=== PATIENT | male | born 1965 | race African-American/Black ===

== ENCOUNTER 2016-07-02 08:16 | Emergency (ER) | payer OTHER ==
[~2016-07-02] VITALS: Ht 177.8 cm; Wt 115.0 kg
[~2016-07-02 08:16] MED LIST: AMLO10 PO; AUGM875T PO; HYDR-3533 PO
[2016-07-02 08:17] VITALS: BP 141/105; PULSE 90; RESP 16; TEMP 98.4; O2SAT 97
--- NOTE | 2016-07-02 08:47 | PD ---
HPI Chief Complaint: Back/ Neck Pain or Injury Time Seen by Provider: 08:47 Travel History International Travel<30 days: No Contact w/Intl Traveler<30days: No Traveled to known affect area: No History of Present Illness HPI 51-year-old Afro-[place]ish male coming into the emergency Department with right ankle pain as well as low back pain for the past several days. Patient states he tripped and fell twisting his right ankle and aggravating his chronic low back pain. She is also noted to have hypertension and he states she's been out of his amlodipine for quite some time. He denies weakness in the right lower extremity, numbness, or bowel or bladder changes. He has no other medical complaints at this time. No known drug allergies PFSH Past Medical History Asthma: Yes Heart Rhythm Problems: No Cardiac Catheterization: No Cardiovascular Problems: Yes (HTN) High Cholesterol: No Chest Pain: Yes Congestive Heart Failure: No Diabetes: No Diminished Hearing: No Hypertension: Yes Musculoskeletal: Yes (CHRONIC BACK PAIN) Myocardial Infarction: No PNEUMOCCOCAL Vaccine (Year): 2 Past Surgical History Coronary Artery Bypass Graft: No Social History Alcohol Use: Yes (OCCASIONALLY ) Tobacco Use: Yes Substance Use: Yes (MARIJUANA) Allergies-Medications (Allergen,Severity, Reaction): Coded Allergies: No Known Allergies (Verified , 07/02/16) Reported Meds & Prescriptions Reported Meds & Active Scripts Active Lortab (Hydrocodone-Acetaminophen) 5-325 Mg Tab 1 Tab PO Q8HR PRN Amlodipine (Amlodipine Besylate) 10 Mg Tab 10 Mg PO DAILY Prednisone 20 Mg Tab 20 Mg PO BID Augmentin (Amoxicillin-Clavulanate) 875-125 mg Tab 875 Mg PO BID not for use in CrCl <30 ml/min. Reported Norvasc (Amlodipine Besylate) 10 Mg Tab 10 Mg PO DAILY Review of Systems ROS Limitations: Poor Historian Except as stated in HPI: all other systems reviewed are Neg General / Constitutional: No: Fever Eyes: No: Visual changes HENT: No: Headaches Cardiovascular: No: Chest Pain or Discomfort Respiratory: No: Shortness of Breath Gastrointestinal: No: Nausea, Abdominal Pain Genitourinary: No: Dysuria Musculoskeletal: Positive: Myalgias, Arthralgias, Limited ROM, Pain Skin: No Rash Neurologic: No: Weakness Psychiatric: No: Depression Endocrine: No: Polydipsia Hematologic/Lymphatic: No: Easy Bruising Physical Exam Exam Limitations: Poor Historian Narrative GENERAL: Patient appears in no acute distress. SKIN: Warm and dry. Normal color. Normal turgor. HEAD: Atraumatic. Normocephalic. EYES: Pupils equal and round. No scleral icterus. No injection or drainage. ENT: No nasal bleeding or discharge. Mucous membranes pink and moist. Pharynx is normal. Airway is patent. NECK: Trachea midline. Supple and nontender. CARDIOVASCULAR: Regular rate and rhythm. RESPIRATORY: No accessory muscle use. Clear to auscultation. Breath sounds equal bilaterally. MUSCULOSKELETAL: Extremities without clubbing, cyanosis, or edema. No obvious deformities. Right ankle appears normal without significant effusion. Patient complains of pain with palpation diffusely. There is no open wound or signs of cellulitis. Low back appears normal patient complains of diffuse tenderness in the lumbar spine without specific sciatic symptoms. NEUROLOGICAL: Awake and alert. No obvious cranial nerve deficits. Motor grossly within normal limits. Five out of 5 muscle strength in the arms and legs. Normal speech. PSYCHIATRIC: Appropriate mood and affect; insight and judgment normal. Data Data Last Documented VS Vital Signs Date Time Temp Pulse Resp B/P Pulse Ox O2 Delivery O2 Flow Rate FiO2 07/02/16 08:17 98.4 90 16 141/105 97 Orders Ankle, Complete ([id number]) (07/02/16 08:54) Ice/Cold Pack (07/02/16 08:54) Spine, Lumbar - Ltd (Ap & Lat) (07/02/16 08:54) Amlodipine (Norvasc) (07/02/16 09:00) Acetaminophen (Tylenol) (07/02/16 09:00) [facility] Medical Decision Making Medical Screen Exam Complete: Yes Emergency Medical Condition: Yes Medical Record Reviewed: Yes Differential Diagnosis Right ankle sprain. Lower lumbar sprain. Arthritic pain. Sciatic flare. Attention. Narrative Course Patient is medically stable at time of exam. Patient is offered Toradol IM but refuses. Patient is given acetaminophen thousand milligrams by mouth. X-rays of the lumbar spine and ankle are ordered. Ankle x-rays negative for acute findings per radiologist. Low back x-ray shows significant arthritis between L4 and L5. Patient was discharged home on prednisone 20 mg twice a day 7 days. Patient is given Lortab 5/325 one every 6 hours when necessary pain #20. Patient is given refill of the amlodipine 10 mg daily #30 with 1 refill. Patient is to follow with his primary care physician as discussed. Diagnosis Primary Impression: Lumbago of lumbar region with sciatica Additional Impression: HTN (hypertension) Qualified Code: I10 - Essential hypertension Referrals: Primary Care Physician Patient Instructions: General Instructions, Sciatica (ED) Additional Instructions: Ankle x-rays negative for acute findings per radiologist. Low back x-ray shows significant arthritis between L4 and L5. Patient was discharged home on prednisone 20 mg twice a day 7 days. Patient is given Lortab 5/325 one every 6 hours when necessary pain #20. Patient is given refill of the amlodipine 10 mg daily #30 with 1 refill. Patient is to follow with his primary care physician as discussed. Med/Other Pt SpecificInfo: Prescription(s) given Scripts Hydrocodone-Acetaminophen (Lortab)5-325 Mg Tab1 Tab PO Q8HR PRN (PAIN) #20 TAB Ref 0 Prov:Jonathan Funes MD 07/02/16 Amlodipine 10 Mg Tab10 Mg PO DAILY #30 TAB Ref 1 Prov:Jonathan Funes MD 07/02/16 Prednisone 20 Mg Tab20 Mg PO BID #14 TAB Prov:Jonathan Funes MD 07/02/16 Disposition: DISCHARGE HOME Condition: Stable Ed Dejesus Jul 02, 2016 08:47
[2016-07-02] MEDS ORDERED: ACETAMINOPHEN 500 MG CPLT PO ONE (09:00)
--- NOTE | 2016-07-02 09:50 | RADRPT ---
EXAM DATE/TIME: 07/02/2016 09:17 [facility] COMPARISON: No previous studies available for comparison. INDICATIONS : Right ankle pain after rolling it last night. MEDICAL HISTORY : None. SURGICAL HISTORY : None. ENCOUNTER: Initial ACUITY: 1 day PAIN SCORE: 10/10 LOCATION: Right ankle. FINDINGS: Three view exam was performed of the right ankle. The bony structures are in normal alignment. No e vidence of fracture, dislocation, or soft tissue swelling. The ankle mortise is intact. No radiopaq ue foreign bodies are seen. Bony mineralization is normal. There is a spur off the inferior calcaneu s at the site of attachment of aponuerosis. An os trigonum is noted posteriorly. CONCLUSION: Negative trauma study. Ronan Son MD on July 02, 2016 at 9:43 Board Certified Radiologist. This report was verified electronically.
--- NOTE | 2016-07-02 10:23 | RADRPT ---
EXAM DATE/TIME: 07/02/2016 09:20 [facility] COMPARISON: No previous studies available for comparison. INDICATIONS : Lower back pain for 3 years; Patient fell last night. MEDICAL HISTORY : None. SURGICAL HISTORY : None. ENCOUNTER: Initial ACUITY: >1 year PAIN SCORE: 10/10 LOCATION: Lower back. FINDINGS: AP and lateral views of the lumbar spine were obtained and demonstrate 5 nonrib-bearing lumbar type v ertebrae with cysts. Moderate degenerative disc changes are present at the L4-5 level with disc space narrowing, sclerosis and anterior spurring. There is no acute fracture or malalignment. The sacrum a ppears intact. CONCLUSION: 1. No acute fracture or malalignment. 2. Moderate degenerative disc change at the L4-5 level. Ronan Son MD on July 02, 2016 at 10:20 Board Certified Radiologist. This report was verified electronically.
[2016-07-02] MEDS ORDERED: AMLO10TA2 PO (10:42)
[2016-07-02] MEDS ORDERED: TRAM50TA PO (10:42)
[2016-07-02] MEDS ORDERED: PRED20 PO (10:42)
[2016-07-02] MEDS ORDERED: HYDR-3533 PO (10:49)
[2016-07-16] MEDS ORDERED: LISI-515 PO (09:59)
== END 2016-07-02 10:59 | disposition home or self-care (01) ==
LOC: NEPB 08:16
DX: M54.40 Lumbago with sciatica, unspecified side (principal); M25.571 Pain in right ankle and joints of right foot; I10 Essential (primary) hypertension; J45.909 Unspecified asthma, uncomplicated; Z72.0 Tobacco use; W01.0XXA Fall on same level from slipping, tripping and stumbling without subsequent striking against object, initial encounter; Y99.8 Other external cause status
CPT/HCPCS: 72100; 73610; 99283

== ENCOUNTER 2016-07-15 09:00 | Emergency (ER) | payer OTHER, MEDICARE ==
[~2016-07-15] VITALS: Ht 177.8 cm; Wt 117.0 kg
[~2016-07-15 09:00] MED LIST changes: +AMLO10TA2 PO; +PRED20 PO
[2016-07-15 09:06] VITALS: BP 140/99; PULSE 92; RESP 20; TEMP 98.2; O2SAT 96
[2016-07-15] MEDS ORDERED: LORTAB (09:32)
[2016-07-15] MEDS ORDERED: LISINOPRIL PO (09:32)
[2016-07-15] MEDS ORDERED: CYCL1TAB29 PO (10:12)
[2016-07-15] MEDS ORDERED: LISI-515 PO (10:12)
[2016-07-15] MEDS ORDERED: MELO-1 PO (10:12)
--- NOTE | 2016-07-15 10:13 | PD ---
HPI Chief Complaint: Injury Time Seen by Provider: 10:08 Travel History International Travel<30 days: No Contact w/Intl Traveler<30days: No Traveled to known affect area: No History of Present Illness HPI Patient is a 51-year-old male presenting to the emergency department for evaluation of low back pain. He also states he needs an additional blood pressure medication refilled. He denies any new injury or trauma. Patient is requesting hydrocodone her tramadol for pain. He states his pain is a 6 out of 10 at times, he has not followed up with her primary doctor. Denies any numbness or tingling in his lower extremities, no bladder or bowel incontinence , he states his back feels tight. PFSH Past Medical History Asthma: Yes Heart Rhythm Problems: No Cardiac Catheterization: No Cardiovascular Problems: Yes (HTN) High Cholesterol: No Chest Pain: Yes Congestive Heart Failure: No Diabetes: No Diminished Hearing: No Hypertension: Yes Musculoskeletal: Yes (CHRONIC BACK PAIN) Myocardial Infarction: No PNEUMOCCOCAL Vaccine (Year): 2 Past Surgical History Coronary Artery Bypass Graft: No Social History Alcohol Use: Yes (OCCASIONALLY ) Tobacco Use: Yes Substance Use: Yes (MARIJUANA) Allergies-Medications (Allergen,Severity, Reaction): Coded Allergies: No Known Allergies (Verified , 07/15/16) Reported Meds & Prescriptions Reported Meds & Active Scripts Active Reported [lisiopri] 20 Mg PO DAILY [Lortab 7.5] 7.5 Norvasc (Amlodipine Besylate) 10 Mg Tab 10 Mg PO DAILY Review of Systems Except as stated in HPI: all other systems reviewed are Neg Musculoskeletal: Positive: Myalgias, Cramping, Pain Physical Exam Narrative GENERAL: Well-nourished, well-developed patient. SKIN: Warm and dry. HEAD: Normocephalic. EYES: No scleral icterus. No injection or drainage. NECK: Supple, trachea midline. No JVD or lymphadenopathy. CARDIOVASCULAR: Regular rate and rhythm without murmurs, gallops, or rubs. RESPIRATORY: Breath sounds equal bilaterally. No accessory muscle use. GASTROINTESTINAL: Abdomen soft, non-tender, nondistended. MUSCULOSKELETAL: No cyanosis, or edema. Mild tenderness to palpation in left paraspinal musculature in the lumbar region. BACK: Nontender without obvious deformity. No CVA tenderness. Data Data Last Documented VS Vital Signs Date Time Temp Pulse Resp B/P Pulse Ox O2 Delivery O2 Flow Rate FiO2 07/15/16 09:06 98.2 92 20 140/99 96 Room Air MDM Medical Decision Making Medical Screen Exam Complete: Yes Emergency Medical Condition: Yes Medical Record Reviewed: Yes Interpretation(s) Vital Signs Date Time Temp Pulse Resp B/P Pulse Ox O2 Delivery O2 Flow Rate FiO2 07/15/16 09:06 98.2 92 20 140/99 96 Room Air Differential Diagnosis Strain versus sprain versus spasm versus discogenic pain versus other Narrative Course Patient is a 51-year-old male presenting to the emergency department for evaluation of low back pain as well as for medication refill. Patient was seen and evaluated in the emergency department 07/02/16, imaging was performed at that time. There is no acute injury noted. Patient was given pain medication as well as steroids. Discussed with patient that we will not refill pain medication for ongoing chronic pain issues. He was advised to follow-up with his primary doctor. He was advised that he would be provided with a prescription for an anti-inflammatory agent as well as a muscle relaxer. He will be given a prescription for lisinopril which he states he is out of. Patient was encouraged to return to emergency department any new or worsening symptoms however he was encouraged to follow up and establish with a primary doctor for ongoing management and evaluation of his chronic health conditions. He verbalized understanding of these instructions. Patient is stable for discharge. Diagnosis Primary Impression: HTN (hypertension) Qualified Code: I10 - Essential hypertension Additional Impression: Lumbago of lumbar region with sciatica Referrals: Primary Care Physician Patient Instructions: Back Pain (ED), Chronic Back Pain (ED), General Instructions, Hypertension (ED) Additional Instructions: Follow-up with your primary doctor Return to emergency department for any new or worsening symptoms Take medications as directed Today heat and ice to affected area, continue range of motion exercises, avoid bed rest Med/Other Pt SpecificInfo: Prescription(s) given Scripts Cyclobenzaprine (Flexeril)10 Mg Tab10 Mg PO TID PRN (MUSCLE SPASM) 10 Days Ref 0 Prov:Adele Gomez 07/15/16 Meloxicam 15 Mg Tab15 Mg PO DAILY 14 Days Ref 0 Prov:Adele Gomez 07/15/16 Lisinopril 20 Mg Tab20 Mg PO DAILY #30 TAB Ref 0 Prov:Adele Gomez 07/15/16 Disposition: 01 DISCHARGE HOME Condition: Stable Adele Gomez Jul 15, 2016 10:13
[2016-07-15 10:21] VITALS: BP 141/97
[2016-07-16] MEDS ORDERED: LISI-515 PO (09:59)
== END 2016-07-15 10:24 | disposition home or self-care (01) ==
LOC: NEPB 09:00
DX: I10 Essential (primary) hypertension (principal); M54.40 Lumbago with sciatica, unspecified side; Z72.0 Tobacco use
CPT/HCPCS: 99283

== ENCOUNTER 2016-08-11 17:15 | Emergency (ER) | payer MEDICARE, OTHER ==
[~2016-08-11] VITALS: Ht 177.8 cm; Wt 120.0 kg
[~2016-08-11 17:15] MED LIST changes: -AMLO10TA2 PO; -AUGM875T PO; +CYCL1TAB29 PO; -HYDR-3533 PO; +LISI-515 PO; +LORTAB; +MELO-1 PO; -PRED20 PO
[2016-08-11 17:16] VITALS: BP 158/102; PULSE 87; RESP 18; TEMP 98.1; O2SAT 98
[2016-08-11] MEDS ORDERED: CYCLOBENZAPRINE HCL 10 MG TAB PO ONE (17:45)
[2016-08-11] MEDS ORDERED: IBUPROFEN 800 MG TAB PO ONE (17:45)
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
--- NOTE | 2016-08-11 18:47 | RADRPT ---
EXAM DATE/TIME: 08/11/2016 18:13 [facility] COMPARISON: No previous studies available for comparison. INDICATIONS : Left side cervical spine pain after falling two days ago. MEDICAL HISTORY : Hypertension. Asthma. Smoker. SURGICAL HISTORY : None. ENCOUNTER: Initial ACUITY: 2 days PAIN SCORE: 10/10 LOCATION: Left cervical spine radiates into left shoulder. FINDINGS: No appreciable subluxation or soft tissue swelling is seen. Degenerative spondylosis is present to a significant degree at C5-6 and C6-7. CONCLUSION: Degenerative spondylosis. Tyler Leblanc MD on August 11, 2016 at 18:44 Board Certified Radiologist. This report was verified electronically.
--- NOTE | 2016-08-11 18:48 | RADRPT ---
EXAM DATE/TIME: 08/11/2016 18:24 [facility] COMPARISON: No previous studies available for comparison. INDICATIONS : Left shoulder pain after falling two days ago. MEDICAL HISTORY : Hypertension. Asthma. Smoker. SURGICAL HISTORY : None. ENCOUNTER: Initial ACUITY: 2 days PAIN SCORE: 10/10 LOCATION: Left shoulder radiating down the arm. FINDINGS: No definite fractures, or dislocations are identified. No definite lytic or sclerotic lesion is seen . The joint space is well maintained. CONCLUSION: Unremarkable study. Tyler Leblanc MD on August 11, 2016 at 18:46 Board Certified Radiologist. This report was verified electronically.
[2016-08-11] MEDS ORDERED: MELO-1 PO (18:59)
[2016-08-11] MEDS ORDERED: CYCL1TAB29 PO (18:59)
== END 2016-08-11 19:40 | disposition home or self-care (01) ==
LOC: NEPB 17:15
DX: S16.1XXA Strain of muscle, fascia and tendon at neck level, initial encounter (principal); M25.512 Pain in left shoulder; I10 Essential (primary) hypertension; V29.9XXA Motorcycle rider (driver) (passenger) injured in unspecified traffic accident, initial encounter; Y93.9 Activity, unspecified; Y92.9 Unspecified place or not applicable; Y99.9 Unspecified external cause status
CPT/HCPCS: 72040; 73030; 99283

== ENCOUNTER 2017-04-28 07:25 | Emergency (ER) | payer OTHER ==
[~2017-04-28] VITALS: Ht 177.8 cm; Wt 115.0 kg
[~2017-04-28 07:25] MED LIST changes: +CYCL10TA PO; -CYCL1TAB29 PO; -MELO-1 PO; +MELO15TA20 PO
[2017-04-28 07:27] VITALS: BP 120/99; PULSE 92; RESP 14; TEMP 98.4; O2SAT 99
--- NOTE | 2017-04-28 07:41 | PD ---
HPI Chief Complaint: Fall Time Seen by Provider: 07:36 Travel History International Travel<30 days: No Contact w/Intl Traveler<30days: No Traveled to known affect area: No History of Present Illness HPI 51-year-old Afro-[place]ian male presents emergency department status post slip and fall 3 days ago. Patient states he slipped and fell in his kitchen. He now complaining of left knee pain, as well as low back pain. Patient states has a history of utilizing pain management in the past with taking hydrocodone for chronic back pain. Patient states he has been out of his pain management for 2 weeks as he was away. Patient's current pain is 6 out of 10, and worse with certain movements. Patient is able to ambulate with a limp. He denies numbness or tingling or weakness. He has no known drug allergies. PFSH Past Medical History Asthma: Yes Heart Rhythm Problems: No Cardiac Catheterization: No Cardiovascular Problems: Yes (HTN) High Cholesterol: No Chest Pain: Yes Congestive Heart Failure: No Diabetes: No Diminished Hearing: No Hypertension: Yes Musculoskeletal: Yes (CHRONIC BACK PAIN) Myocardial Infarction: No PNEUMOCCOCAL Vaccine (Year): 2 Past Surgical History Coronary Artery Bypass Graft: No Social History Alcohol Use: Yes (OCCASIONALLY ) Tobacco Use: Yes Substance Use: Yes (MARIJUANA) Allergies-Medications (Allergen,Severity, Reaction): Coded Allergies: No Known Allergies (Verified Adverse Reaction, Unknown, 04/28/17) Reported Meds & Prescriptions Reported Meds & Active Scripts Active Reported Norvasc (Amlodipine Besylate) 10 Mg Tab 10 Mg PO DAILY Review of Systems Except as stated in HPI: all other systems reviewed are Neg General / Constitutional: No: Fever Eyes: No: Visual changes HENT: No: Headaches Cardiovascular: No: Chest Pain or Discomfort Respiratory: No: Shortness of Breath Gastrointestinal: No: Abdominal Pain Genitourinary: No: Dysuria Musculoskeletal: Positive: Arthralgias, Limited ROM, Pain Skin: No Rash Neurologic: No: Weakness Psychiatric: No: Depression Endocrine: No: Polydipsia Hematologic/Lymphatic: No: Easy Bruising Physical Exam Narrative GENERAL: Patient appears in mild to moderate distress. SKIN: Warm and dry. Normal color. Normal turgor. No signs of trauma HEAD: Atraumatic. Normocephalic. EYES: Pupils equal and round. No scleral icterus. No injection or drainage. ENT: No nasal bleeding or discharge. Mucous membranes pink and moist. Pharynx is clear. Airway is patent. NECK: Trachea midline. Supple and nontender. CARDIOVASCULAR: Regular rate and rhythm. RESPIRATORY: No accessory muscle use. Clear to auscultation. Breath sounds equal bilaterally. GASTROINTESTINAL: Abdomen soft, non-tender, nondistended. Hepatic and splenic margins not palpable. MUSCULOSKELETAL: Extremities without clubbing, cyanosis, or edema. No obvious deformities. Patient has soft tissue tenderness along the lower lumbar spine bilaterally. Complains of straight leg raise pain bilaterally. Left knee has mild effusion without obvious deformity. No laxity is appreciated. Exam is limited secondary to pain. NEUROLOGICAL: Awake and alert. No obvious cranial nerve deficits. Motor grossly within normal limits. Five out of 5 muscle strength in the arms and legs. Normal speech. PSYCHIATRIC: Appropriate mood and affect; insight and judgment normal. Data Data Last Documented VS Vital Signs Date Time Temp Pulse Resp B/P (MAP) Pulse Ox O2 Delivery O2 Flow Rate FiO2 04/28/17 07:27 98.4 92 14 120/99 (106) 99 Orders Orders Knee, Complete (4vws) (04/28/17 07:45) Ketorolac Inj (Toradol Inj) (04/28/17 07:45) Acetamin-Hydrocod 325-5 Mg ([facility] 5-325 (04/28/17 09:15) MDM Medical Decision Making Medical Screen Exam Complete: Yes Emergency Medical Condition: Yes Medical Record Reviewed: Yes Differential Diagnosis Slip and fall. Lumbar strain. Left knee sprain. Possible fracture. Narrative Course X-ray of the left knee is ordered. Patient is given Toradol 60 mg IM. Patient is given Lortab 5/325 by mouth now. X-ray of the left knee shows no acute process per radiology. Patient will be continued on meloxicam 15 mg daily as well for 10 days as Flexeril 10 mg up to 3 times a day when necessary #30. Patient is to follow with his chronic pain clinic for any narcotic medications. Patient follow-up here as needed. Diagnosis Primary Impression: Lumbago of lumbar region with sciatica Additional Impression: Strain of left knee Qualified Codes: S86.912A - Strain of unspecified muscle(s) and tendon(s) at lower leg level, left leg, initial encounter Referrals: Pain Management Primary Care Physician Patient Instructions: Back Pain (ED), General Instructions, Knee Pain (ED) Additional Instructions: Patient is given Toradol 60 mg IM. Patient is given Lortab 5/325 by mouth now. X-ray of the left knee shows no acute process per radiology. Patient will be continued on meloxicam 15 mg daily as well for 10 days as Flexeril 10 mg up to 3 times a day when necessary #30. Patient is to follow with his chronic pain clinic for any narcotic medications. Patient follow-up here as needed. Med/Other Pt SpecificInfo: Prescription(s) given Scripts Meloxicam (Meloxicam) 15 Mg Tab 15 MG PO DAILY for Arthritis Pain for 10 Days, TAB 0 Refills Prov: Kenyon Tavares MD 04/28/17 Cyclobenzaprine (Flexeril) 10 Mg Tab 10 MG PO TID Y for MUSCLE SPASM for 10 Days, TAB 0 Refills Prov: Kenyon Tavares MD 04/28/17 Disposition: 01 DISCHARGE HOME Condition: Stable Ed Dejesus Apr 28, 2017 07:41
[2017-04-28] MEDS ORDERED: KETOROLAC TROMETHAMINE 60 MG/2 ML (IM) VIAL IM ONE (07:45)
[2017-04-28] MEDS ORDERED: ACETAMINOPHEN/HYDROcodone 325 MG/5 MG TAB PO ONE (09:15)
[2017-04-28] MEDS ORDERED: MELO15TA20 PO (09:19)
[2017-04-28] MEDS ORDERED: CYCL10TA PO (09:19)
--- NOTE | 2017-04-28 09:40 | RADRPT ---
EXAM DATE/TIME: 04/28/2017 08:53 [facility] COMPARISON: No previous studies available for comparison. INDICATIONS : Left knee pain due to fall all pain at patella. MEDICAL HISTORY : Hypertension. SURGICAL HISTORY : None. ENCOUNTER: Initial ACUITY: 1 day PAIN SCORE: 10/10 LOCATION: Left knee FINDINGS: Four view examination of the left knee demonstrates no evidence of fracture or dislocation. Bony min eralization is normal. The articular surfaces are intact. The suprapatellar soft tissues have a nor mal configuration. CONCLUSION: 1. No acute fracture or dislocation. Bk Vizcarra MD on April 28, 2017 at 9:38 Board Certified Radiologist. This report was verified electronically.
== END 2017-04-28 10:15 | disposition home or self-care (01) ==
LOC: NEPD 07:25
DX: M54.40 Lumbago with sciatica, unspecified side (principal); S86.912A Strain of unspecified muscle(s) and tendon(s) at lower leg level, left leg, initial encounter; W01.0XXA Fall on same level from slipping, tripping and stumbling without subsequent striking against object, initial encounter; Y92.000 Kitchen of unspecified non-institutional (private) residence as the place of occurrence of the external cause
CPT/HCPCS: 73564; 96372; 99284; J1885

== ENCOUNTER 2017-05-06 06:49 | Emergency (ER) | payer OTHER ==
[~2017-05-06 06:49] MED LIST changes: -LISI-515 PO; -LORTAB
[2017-05-06 06:51] VITALS: BP 177/110; PULSE 101; TEMP 96.7; O2SAT 99
[2017-05-06] MEDS ORDERED: LISI-515 PO (07:08)
--- NOTE | 2017-05-06 07:18 | PD ---
HPI Chief Complaint: Skin Problem Time Seen by Provider: 07:24 Travel History International Travel<30 days: No Contact w/Intl Traveler<30days: No Traveled to known affect area: No History of Present Illness HPI 51y male presents to the ED with a rash that has been persistent for 2 weeks. Pt states he was doing yard work and the rash developed the next day. He believes this may be poison giuseppe or poison oak. States the rash is only located on the upper extremities, is mildly pruritic, and has not improved. Pt denies recent travel, new foods, soaps, lotions. Patient states that he has been cleaning his linen and towels after use since the exposure. Patient has a history of high blood pressure and admits to having dry skin. Patient denies fever or chills. PFSH Past Medical History Asthma: Yes Heart Rhythm Problems: No Cardiac Catheterization: No Cardiovascular Problems: Yes (HTN) High Cholesterol: No Chest Pain: Yes Congestive Heart Failure: No Diabetes: No Diminished Hearing: No Hypertension: Yes Musculoskeletal: Yes (CHRONIC BACK PAIN) Myocardial Infarction: No PNEUMOCCOCAL Vaccine (Year): 2 Past Surgical History Coronary Artery Bypass Graft: No Social History Alcohol Use: Yes (OCCASIONALLY ) Tobacco Use: Yes Substance Use: Yes (MARIJUANA) Allergies-Medications (Allergen,Severity, Reaction): Coded Allergies: No Known Allergies (Verified Adverse Reaction, Unknown, 04/28/17) Reported Meds & Prescriptions Reported Meds & Active Scripts Active Medrol Dosepak (Methylprednisolone) 4 Mg Dspk 4 Mg PO DIRECTED Per Pharmacist direction Bactroban Topical (Mupirocin) 22 Gm Cream 1 Applic TOPICAL BID 5 Days Apply to open, weeping lesions to reduce infection. Meloxicam 15 Mg Tab 15 Mg PO DAILY 10 Days Reported Lisinopril 20 Mg Tab 20 Mg PO BID Norvasc (Amlodipine Besylate) 10 Mg Tab 10 Mg PO DAILY Review of Systems Except as stated in HPI: all other systems reviewed are Neg Physical Exam Narrative GENERAL: Well-developed well-nourished in no apparent distress SKIN: Focused skin assessment warm/dry. Bilateral upper extremities- numerous papules, 3 areas of round scaling lesions. Nikolsky's sign negative. No evidence of axillary involvement. No erythema, exudate, edema or lymphangitic Spread. Obvious excoriations over left elbow. HEAD: Atraumatic. Normocephalic. EYES: Pupils equal and round. No scleral icterus. No injection or drainage. ENT: No nasal bleeding or discharge. Mucous membranes pink and moist. NECK: Trachea midline. No JVD. incidental finding of a large 7cm soft, round lipoma on upper shoulder/neck region. no complaints. CARDIOVASCULAR: Regular rate and rhythm. No murmur appreciated. MUSCULOSKELETAL: No obvious deformities. No clubbing. No cyanosis. No edema. NEUROLOGICAL: Awake and alert. No obvious cranial nerve deficits. Motor grossly within normal limits. Normal speech. PSYCHIATRIC: Appropriate mood and affect; insight and judgment normal. Data Data Last Documented VS Vital Signs Date Time Temp Pulse Resp B/P (MAP) Pulse Ox O2 Delivery O2 Flow Rate FiO2 05/06/17 08:08 05/06/17 06:51 96.7 101 99 Room Air Orders Orders Methylprednisolone So Succ Inj (Solumedr (05/06/17 07:30) Ed Discharge Order (05/06/17 08:01) MDM Medical Decision Making Medical Screen Exam Complete: Yes Emergency Medical Condition: Yes Differential Diagnosis Contact dermatitis, eczema, atopic dermatitis, allergic dermatitis Narrative Course 51y male presents to the ED with a rash that has been persistent for 2 weeks. Pt states he was doing yard work and the rash developed the next day. He believes this may be poison giuseppe or poison oak. States the rash is only located on the upper extremities, is mildly pruritic, and has not improved. Pt denies recent travel, new foods, soaps, lotions. Patient states that he has been cleaning his linen and towels after use since the exposure. Patient has a history of high blood pressure and admits to having dry skin. Patient denies fever or chills. Physical exam consistent with contact dermatitis with an eczematous component. Vital signs stable Solumedrol administered and observed for 30 minutes. Based off of history and physical, patient likely has contact dermatitis with exacerbation of eczema. There is no evidence of cellulitis but there is concern for impetigo secondary to excoriations and scratching. Patient will go home with Bactroban and medrol dose pack. Diagnosis Primary Impression: Contact dermatitis Qualified Codes: L24.89 - Irritant contact dermatitis due to other agents Referrals: Primary Care Physician Additional Instructions: Follow-up with the primary care physician within 2-3 days. You may use Benadryl or Zyrtec (generic) by mouth to reduce your symptoms. Use [id number] hydrocortisone cream per package instructions to reduce itching and swelling. Continue to wash your linen and towels to reduce recontamination with the offending agent. If your symptoms persist or worsen, return to the emergency department. Scripts Methylprednisolone Dosepak (Medrol Dosepak) 4 Mg Dspk 4 MG PO DIRECTED, #1 DSPK 0 Refills Per Pharmacist direction Prov: Kenneth Lopez MD 05/06/17 Mupirocin Topical (Bactroban Topical) 22 Gm Cream 1 APPLIC TOPICAL BID for Mgmt Bacterial Infection for 5 Days, #1 TUBE 0 Refills Apply to open, weeping lesions to reduce infection. Prov: Kenneth Lopez MD 05/06/17 Disposition: 01 DISCHARGE HOME Condition: Stable Vianey Broussard May 06, 2017 07:18
[2017-05-06] MEDS ORDERED: MUPI2%T TOPICAL (07:26)
[2017-05-06] MEDS ORDERED: methylPREDNISolone SOD SUCC 125 MG/2 ML VIAL IM ONE (07:30)
[2017-05-06] MEDS ORDERED: MEDR4PAK PO (08:00)
== END 2017-05-06 08:08 | disposition home or self-care (01) ==
LOC: NEPD 06:49
DX: L24.89 Irritant contact dermatitis due to other agents (principal); I10 Essential (primary) hypertension; Z72.0 Tobacco use
CPT/HCPCS: 96372; 99284; J2930

== ENCOUNTER 2017-07-13 11:00 | Emergency (ER) | payer OTHER ==
[~2017-07-13] VITALS: Ht 304.8 cm; Wt 5.0 kg
[~2017-07-13 11:00] MED LIST changes: -CYCL10TA PO; +LISI-515 PO; +MEDR4PAK PO; +MUPI2%T TOPICAL
[2017-07-13 11:01] VITALS: BP 148/96; PULSE 109; RESP 20; TEMP 98.6; O2SAT 99
[2017-07-13 11:45] VITALS: PULSE 88
[2017-07-13] MEDS ORDERED: MUPI2%T TOPICAL (12:17)
[2017-07-13] MEDS ORDERED: PRED20 PO (12:17)
[2017-07-13] MEDS ORDERED: DOXY100C PO (12:17)
--- NOTE | 2017-07-13 12:19 | PD ---
HPI Chief Complaint: Skin Problem Time Seen by Provider: 12:13 Travel History International Travel<30 days: No Contact w/Intl Traveler<30days: No Traveled to known affect area: No History of Present Illness HPI 52-year-old male presents for evaluation of a rash. Symptoms started 2 months ago. The rash is pruritic, found on the arms and upper back. 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 He was seen here in April and prescribed Medrol Dosepak as well as Bactroban. The rash persists which prompted evaluation. Denies any fevers, chills. No sick contacts with rash. No other complaints. PFSH Past Medical History Asthma: Yes Heart Rhythm Problems: No Cardiac Catheterization: No Cardiovascular Problems: Yes (HTN) High Cholesterol: No Chest Pain: Yes Congestive Heart Failure: No Diabetes: No Diminished Hearing: No Hypertension: Yes Musculoskeletal: Yes (CHRONIC BACK PAIN) Myocardial Infarction: No PNEUMOCCOCAL Vaccine (Year): 2 Past Surgical History Coronary Artery Bypass Graft: No Social History Alcohol Use: Yes (OCCASIONALLY ) Tobacco Use: Yes Substance Use: Yes (MARIJUANA) Allergies-Medications (Allergen,Severity, Reaction): Coded Allergies: No Known Allergies (Verified Adverse Reaction, Unknown, 04/28/17) Reported Meds & Prescriptions Reported Meds & Active Scripts Active Meloxicam 15 Mg Tab 15 Mg PO DAILY 10 Days Bactroban Topical (Mupirocin) 22 Gm Cream 1 Applic TOPICAL BID Doxycycline Hyclate 100 Mg Cap 100 Mg PO BID Prednisone 20 Mg Tab 20 Mg PO BID 5 Days Medrol Dosepak (Methylprednisolone) 4 Mg Dspk 4 Mg PO DIRECTED Per Pharmacist direction Bactroban Topical (Mupirocin) 22 Gm Cream 1 Applic TOPICAL BID 5 Days Apply to open, weeping lesions to reduce infection. Reported Lisinopril 20 Mg Tab 20 Mg PO BID Norvasc (Amlodipine Besylate) 10 Mg Tab 10 Mg PO DAILY Review of Systems Except as stated in HPI: all other systems reviewed are Neg Physical Exam Narrative GENERAL: Well-nourished male in no acute distress SKIN: Warm and dry. Excoriated papular vesicular rash noted to the arms and upper back. There are some cellulitic changes. HEAD: Atraumatic. Normocephalic. EYES: Pupils equal and round. No scleral icterus. No injection or drainage. ENT: No nasal bleeding or discharge. Mucous membranes pink and moist. NECK: Trachea midline. No JVD. CARDIOVASCULAR: Regular rate and rhythm. No murmur appreciated. RESPIRATORY: No accessory muscle use. Clear to auscultation. Breath sounds equal bilaterally. GASTROINTESTINAL: Abdomen soft, non-tender, nondistended. MUSCULOSKELETAL: No obvious deformities. No clubbing. No cyanosis. No edema. NEUROLOGICAL: Awake and alert. No obvious cranial nerve deficits. Motor grossly within normal limits. Normal speech. Data Data Last Documented VS Vital Signs Date Time Temp Pulse Resp B/P (MAP) Pulse Ox O2 Delivery O2 Flow Rate FiO2 07/13/17 12:46 07/13/17 11:45 88 07/13/17 11:01 98.6 20 99 Room Air Orders Orders Ed Discharge Order (07/13/17 12:19) [facility] Medical Decision Making Medical Screen Exam Complete: Yes Emergency Medical Condition: Yes Medical Record Reviewed: Yes Differential Diagnosis Allergic contact dermatitis, irritant contact dermatitis, cellulitis, impetigo Narrative Course The patient's rash would be most consistent with contact dermatitis with some superimposed cellulitic changes. The rash has been persistent for 2 months and therefore I recommended outpatient follow-up with a rock climbing team member. He will be discharged with prednisone, doxycycline, Bactroban ointment. Diagnosis Primary Impression: Pruritic rash Additional Impression: Cellulitis Referrals: Faculty I On Call Medical Assistant Additional Instructions: Follow-up with a rock climbing team member for further evaluation of this rash. Medication as prescribed. Avoid scratching. Return for any emergent medical conditions. Med/Other Pt SpecificInfo: Prescription(s) given Scripts Meloxicam (Meloxicam) 15 Mg Tab 15 MG PO DAILY for Arthritis Pain for 10 Days, TAB 0 Refills Prov: Rick Borrero MD 07/13/17 Mupirocin Topical (Bactroban Topical) 22 Gm Cream 1 APPLIC TOPICAL BID for Mgmt Bacterial Infection, #1 TUBE 1 Refill Prov: Rick Borrero MD 07/13/17 Doxycycline Hyclate (Doxycycline Hyclate) 100 Mg Cap 100 MG PO BID for Infection, #20 CAP 0 Refills Prov: Rick Borrero MD 07/13/17 Prednisone (Prednisone) 20 Mg Tab 20 MG PO BID for 5 Days, #10 TAB 0 Refills Prov: Rick Borrero MD 07/13/17 Disposition: 01 DISCHARGE HOME Condition: Stable Flex Ahumada Jul 13, 2017 12:19
[2017-07-13] MEDS ORDERED: MELO15TA20 PO (12:38)
== END 2017-07-13 12:48 | disposition home or self-care (01) ==
LOC: NEPK 11:00
DX: R21 Rash and other nonspecific skin eruption (principal); I10 Essential (primary) hypertension; Z72.0 Tobacco use
CPT/HCPCS: 99283